=== PATIENT | female | born 1990 | race Caucasian/White ===

== ENCOUNTER → 2016-04-26 | Outpatient (CLI) | payer BC ==
--- NOTE | 2016-04-28 14:06 | US ---
EXAMINATION TYPE: US OB anatomy transabd DATE OF EXAM: 04/26/2016 2:03 PM COMPARISON: None available at this location. HISTORY: follow up to abnormal US at [facility], they could not document 3V code TECHNIQUE: Transabdominal (TA) exam performed 04/26/2016 present 04/28/2016 1 resolution of a [employer] l information transfer error. 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 12 oz. WEIGHT PERCENTAGE BASED ON ESTABLISHED DATE: 58 % HC/AC: 1.1 FL/AC: 22 HEART RATE: 134 bpm RHYTHM: Normal ANATOMY SEEN (within normal limits): * Lateral Vent (< 1 cm) 0.5 cm * Cisterna Magna (< 1.1 cm) 0.4 cm * Nuchal Fold (< 0.6 cm) 0.3 cm * Cerebellum (varies with age) 2.2 cm Choroid Plexus (bilateral) Midline Falx Cavus Septi Pellucidi Four Chamber Heart Outflow tracts: LVOT/RVOT Stomach Situs Nose / Lips Diaphragm Kidneys (bilateral) Bladder Cord Insert Three Vessel Cord Longitudinal Spine Transverse Spine Arms (bilateral) Legs (bilateral) TECHNOLOGIST IMPRESSION: Patient already had anatomy scan at [facility] but they are questioning 2V cord versus 3V = today there is a 20w3d fetus seen and appears wnl with a 3V cord note d *incidental of fundal uterine septation noted* IMPRESSION: 1. Single intrauterine gestation estimated at 20 weeks 3 days gestation based on the current ultrasou nd measurements. This would have a calculated EDC of 09/10/2016. Compare this with her physician sabas riky EDC of 09/12/2016. 2. Clear demonstration of a 3 vessel cord. 3. Cardiac activity measures 134 bpm.
== END | disposition home or self-care (01) ==
LOC: RADUSWWP 12:57
PROVIDERS: ATTEND Obstetrics & Gynecology
DX: Z36 Encounter for antenatal screening of mother (principal); Z3A.20 20 weeks gestation of pregnancy
CPT/HCPCS: 76811

== ENCOUNTER → 2016-06-03 | Outpatient (CLI) | payer BC ==
[2016-06-03 09:06] LABS: CH 32.5; CHCM 33.4; HCT 33.7 % (34.0-46.0); HDW 2.78; HGB 11.4 gm/dL (11.4-16.0); MCH 33.2 pg (25.0-35.0); MCHC 33.9 g/dL (31.0-37.0); MCV 97.8 fL (80.0-100.0); Mean Platelet Volume 6.5; RBC 3.44 m/uL (3.80-5.40); RDW 13.6 % (11.5-15.5); WBC 9.8 k/uL (3.8-10.6)
== END | disposition home or self-care (01) ==
LOC: LABWHC1 08:53
PROVIDERS: ATTEND Obstetrics & Gynecology
DX: Z34.82 Encounter for supervision of other normal pregnancy, second trimester (principal)
CPT/HCPCS: 36415; 82950; 85027

== ENCOUNTER → 2016-06-08 | Outpatient (CLI) | payer BC ==
[2016-06-08 12:02] LABS: Glucose 3 Hour, Gest 60 mg/dL
== END | disposition home or self-care (01) ==
LOC: LABWHC1 07:43
PROVIDERS: ATTEND Obstetrics & Gynecology
DX: O99.810 Abnormal glucose complicating pregnancy (principal); Z3A.00 Weeks of gestation of pregnancy not specified
CPT/HCPCS: 36415; 82951; 82952

== ENCOUNTER → 2016-06-22 | Outpatient (CLI) | payer BC ==
--- NOTE | 2016-06-22 14:36 | US ---
EXAMINATION TYPE: US OB anatomy transabd DATE OF EXAM: 06/22/2016 1:46 PM COMPARISON: NONE HISTORY: 25-year-old female [id number] Large for dates. Patient has a known uterine septation from prio r . TECHNIQUE: Transabdominal scanning FINDINGS: EXAM MEASUREMENTS: GESTATIONAL AGE / DATING Physician Established: (28 weeks/2 days) EDC: 09/12/2016 Dates by LMP: (28 weeks/2 days) EDC: 09/12/2016 Dates by First Scan: (28 weeks/4 days) EDC: 09/10/2016 Dates by Current Scan for: (28 weeks/6 days) EDC: 09/08/2016 SURVEY IUP: Single PLACENTA: Anterior. Approximately half of the placenta extends onto the left side of the septum. PREVIA: No previa ANA LILIA: 16.8 cm Normal CERVICAL LENGTH (transabdominal: norm > 3.0cm): 4.1 cm BIOMETRY PRESENTATION: Breech BPD: 7.5 cm 30 weeks / 2 days HC: 26.6 cm 29 weeks / 0 days AC: 24.7 cm 28 weeks / 6 days FL: 5.6 cm 29 weeks / 2 days ESTIMATED WEIGHT IN GRAMS: 1336 grams ESTIMATED WEIGHT IN LBS/OZS: 2 lbs. 15 oz. WEIGHT PERCENTAGE BASED ON ESTABLISHED DATE: 69 % HC/AC: 1.1 normal FL/AC: 22.5, normal HEART RATE: 132 bpm ANATOMY SEEN (within normal limits): Lateral Vent (< 1 cm) 0.5 cm Cisterna Magna (< 1.1 cm) 0.7 cm Cerebellum (varies with age) 3.2 cm Midline Falx Cavus Septi Pellucidi Four Chamber Heart Stomach Situs Diaphragm Kidneys (bilateral) Longitudinal Spine Transverse Spine Arms (bilateral) Legs (bilateral) ANATOMY NOT SEEN OR SUBOPTIMALLY VISUALIZED: Choroid Plexus (bilateral) Outflow tracts: LVOT/RVOT Nose / Lips Bladder Cord Insert Three Vessel Cord PUBLIC TRANSIT BUS DRIVER NOTES: Anatomy somewhat limited due to advanced age and position. Patient has known history of septate uterus discovered during prior . On today's exam the baby's head is posi tioned at the right cornua while the the body is more towards the left. Growth according to raciel es. IMPRESSION: 1. Single live intrauterine with estimated gestational age of 28 weeks 2 days by LMP. Curre nt ultrasound biometry is concordant (28 weeks 6 days) placing the child at the 69th percentile for w eight. There has been appropriate interval growth from 04/26/2016. 2. Septate uterus. The baby is now breech position with the head extending across the septum into the right cornua. Most of the body remains on the left. 3. Of note, a portion of the placenta has implanted onto the left aspect of the septum.
== END | disposition home or self-care (01) ==
LOC: RADUSWWP 13:01
PROVIDERS: ATTEND Obstetrics & Gynecology
DX: O32.1XX0 Maternal care for breech presentation, not applicable or unspecified (principal); O34.03 Maternal care for unspecified congenital malformation of uterus, third trimester; Q51.2 Other doubling of uterus; Z3A.28 28 weeks gestation of pregnancy
CPT/HCPCS: 76811

== ENCOUNTER 2016-09-05 05:49 | Inpatient (IN) | payer BC ==
[2016-08-31 12:24] VITALS: BMI 30.7
--- NOTE | 2016-09-04 11:00 | P.HPOB ---
History of Present Illness H&P Date: 09/04/16 Chief Complaint: Patient is presenting for repeat C/S and tubal ligation. This patient is a pleasant 26 yr female EDC 09/12/2016 estimated gestational age 39 0/7 weeks who presents for elective repeat C/S and also requesting permanent sterilization. has be complicated by a known uterine septum. She has been followed with growth ultrasounds and NSTs. She also was noted to have mild polyhydraminos. Review of Systems Constitutional: Denies chills, Denies fever Ears, nose, mouth and throat: Denies headache, Denies sore throat Cardiovascular: Denies chest pain, Denies shortness of breath Respiratory: Denies cough Gastrointestinal: Reports heartburn Genitourinary: Reports Menstruation: Reports amenorrhea Musculoskeletal: Denies myalgias Integumentary: Denies pruritus, Denies rash Neurological: Denies numbness, Denies weakness Psychiatric: Denies anxiety, Denies depression Past Medical History Additional Past Medical History / Comment(s): Uterine septum. History of Any Multi-Drug Resistant Organisms: None Reported Past Surgical History: Section Past Anesthesia/Blood Transfusion Reactions: No Reported Reaction Past Psychological History: No Psychological Hx Reported Smoking Status: Never smoker Past Alcohol Use History: None Reported Past Drug Use History: None Reported - Past Family History Mother Family Medical History: Diabetes Mellitus Medications and Allergies Home Medications Medication Instructions Recorded Confirmed Type Vitamin 1 tab PO DAILY 08/26/13 08/31/16 History L.acidoph,Paracasei, B.lactis 1 each PO 08/31/16 08/31/16 History [Probiotic] Allergies Allergy/AdvReac Type Severity Reaction Status Date / Time No Known Allergies Allergy Verified 08/31/16 12:18 Exam - OBG Physical Exam Abdomen: bowel sounds normal, no diffuse tenderness, no bruit present, no guarding noted, no hepatomegaly, no splenomegaly, no mass Vulva: both: normal Vagina: normal moisture, no discharge Cervix: no lesion (Cervix in the office was closed), no discharge Uterus: enlarged (Fundal height was 41 cm) Results Labs: B positive, Rubella Immune, RPR-HepB neg, Glucola was abnormal with a normal 3hr GTT, GBS negative. Assessment and Plan (1) Septate uterus complicating Narrative/Plan: This is a pleasant 26 yr female 39 weeks gestation with known uterine septum, previous section who desires repeat C/S and also requesting permanent sterilization. Patient understands that a tubal ligation is considered permanent, also does have a failure rate of ~ procedures done. She understands that surgery itself has risks: infection, bleeding, possible injury to bowel/bladder/vessels and other organs. She understands the risk of PE and DVT. All of her questions have been answered and a written consent obtained. Status: Chronic (2) Previous delivery affecting Status: Acute (3) Family planning Status: Acute
[2016-09-05] MEDS ORDERED: CITRIC ACID-SODIUM CITRATE 15 ML CUP PO ONE (06:02)
[2016-09-05] MEDS ORDERED: LACTATED RINGERS 1,000 ML IV ONE (06:02)
[2016-09-05] MEDS ORDERED: LACTATED RINGERS 1,000 ML IV SCH (06:02)
[2016-09-05 06:10] LABS: Basophils % (A) 0 %; CH 32.5; CHCM 34.2; Eosinophils # (A) 0.2 k/uL (0-0.7); Eosinophils % (A) 2 %; HCT 34.3 % (34.0-46.0); HDW 2.58; HGB 12.3 gm/dL (11.4-16.0); Luc # (Auto) 0.27; Luc % (Auto) 3; Lymphocytes # (A) 1.9 k/uL (1.0-4.8); Lymphocytes % (A) 23 %; MCH 34.1 pg (25.0-35.0); MCHC 35.7 g/dL (31.0-37.0); MCV 95.6 fL (80.0-100.0); Mean Platelet Volume 7.5; Monocytes # (A) 0.3 k/uL (0-1.0); Monocytes % (A) 4 %; Neutrophils # (A) 5.6 k/uL (1.3-7.7); Neutrophils % (A) 68 %; RBC 3.59 m/uL (3.80-5.40); RDW 14.8 % (11.5-15.5); WBC 8.2 k/uL (3.8-10.6); WBC (Perox) 8.85
[2016-09-05] MEDS ORDERED: ceFAZolin 2 GM in SODIUM CHLORIDE 0.9% 100 ML IVPB ONE (07:17)
[2016-09-05] MEDS ORDERED: ONDANSETRON 4 MG/2 ML VIAL ONE (07:50)
[2016-09-05] MEDS ORDERED: MORPHINE SULFATE (PF) 0.3 MG/0.3 ML SYR ONE (07:50)
[2016-09-05] MEDS ORDERED: ePHEDrine 50 MG/ML 1 ML AMP ONE (07:50)
[2016-09-05] MEDS ORDERED: NALBUPHINE 10 MG/ML AMPUL ONE (07:50)
[2016-09-05] MEDS ORDERED: OXYTOCIN 10 UNIT/ML 1 ML VIAL ONE (07:50)
[2016-09-05] MEDS ORDERED: diphenhydrAMINE 50 MG/ML 1 ML VIAL IVP PRN ×2 (08:18→08:38)
[2016-09-05] MEDS ORDERED: MORPHINE SULFATE 4 MG/ML SYRINGE IVP PRN (08:18)
[2016-09-05] MEDS ORDERED: NALOXONE 0.4 MG/ML 1 ML VIAL IV PRN ×2 (08:18→08:38)
[2016-09-05] MEDS ORDERED: ONDANSETRON 4 MG/2 ML VIAL IVP PRN ×2 (08:18→08:38)
[2016-09-05] MEDS ORDERED: Acetaminophen-Codeine 300-30mg TAB PO PRN (08:38)
[2016-09-05] MEDS ORDERED: SIMETHICONE 80 MG CHEWABLE PO PRN (08:38)
[2016-09-05] MEDS ORDERED: METOCLOPRAMIDE 5 MG/ML 2 ML VIAL IVP PRN (08:38)
[2016-09-05] MEDS ORDERED: OXYTOCIN 20 UNITS/1000 ML NS 1,000 ML IV SCH (08:38)
[2016-09-05] MEDS ORDERED: ACETAMINOPHEN TAB 325 MG TAB PO PRN (08:38)
[2016-09-05] MEDS ORDERED: diphenhydrAMINE 25 MG CAP PO PRN (08:38)
[2016-09-05] MEDS ORDERED: LANOLIN CREAM 5 GM TUBE TOPICAL PRN (08:38)
[2016-09-05] MEDS ORDERED: ZOLPIDEM 5 MG TAB PO PRN (08:38)
--- NOTE | 2016-09-05 08:44 | P.OP ---
Date of Procedure: 09/05/16 Preoperative Diagnosis: #1: 39-0/7 weeks . #2: Previous section desires repeat. #3: Multi parity desires permanent sterilization. #4: Known uterine septum. Postoperative Diagnosis: Same Procedure(s) Performed: #1: Repeat low transverse section. #2: Bilateral partial salpingectomy Implants: Anesthesia: spinal Surgeon: Dane Ramos Executive Administrative Asst #1: Tammie Silva Estimated Blood Loss (ml): 800 Urine output (ml): 800 Pathology: other (Placenta and bilateral fallopian tube segments) Condition: stable Disposition: floor Indications for Procedure: Please see dictated H&P for intimate details of this patient's admission. Repeat summary this is a pleasant 26-year-old 2 para 1 female 39 weeks gestation who was admitted to labor and delivery for elective repeat section and tubal ligation. Patient does understand that a tubal ligation is permanent, however there is a failure rate of approximately 20-25 per thousand procedures done. She understands surgery itself and apparently has risks including risks of infection, bleeding, possible injury to bowel, bladder, vessels, and/or other organs. She understands the risk of DVT and pulmonary embolism. All the patient's questions are answered written consent is obtained. Operative Findings: This was a vigorous viable female Apgars 9 and 9 delivery time is 0810 hours. Infant has spontaneous respirations and good cry. Patient had a large midline uterine septum. Description of Procedure: This patient has a Viramontes catheter placed to straight drain. She is substrate taken to the operating room where she sat up and spinal anesthetic is administered without incident. With an adequate level of anesthesia she has abdominal prep and drape. Scalpels then taken in the previous Pfannenstiel incision is incised. A second scalpel is taken down to the fascia and the fascia scored with the scalpel. The fascia is dissected bilaterally using the Luna scissors. The fascia is then dissected off the rectus muscles inferiorly and superiorly. Peritoneum was identified and entered sharply. Peritoneal incision extended superior and inferior without difficulty. Bladder blade is then placed. Bladder peritoneum was taken sharply off the lower uterine segment without difficulty. A scalpel is then taken and a low transverse uterine incision is made. Using a hemostat I into the uterine cavity bluntly. This incision is i extended bluntly. There is loss of clear fluid. 's head is then guided gently through the incision with fundal pressure. Mouth and nares are bulb suctioned. There is no evidence of a nuchal cord. We then have deliver the anterior and posterior shoulder and rest this infant's body. This is a vigorous viable female infant Apgars are 9 and 9 delivery time was 0810 hours. After delivery of the infant the umbilical cord is doubly clamped and cut and appears to be trivascular. The placenta is then manually extracted intact. I paid careful attention to the other uterine horn and remove the membranes from there as well. Complete removal of any products is noted. Uterine incision is then demarcated with Nettles clamps. Uterine incision closed using 0 Vicryl running locked fashion 2 layers and excellent hemostasis is noted. The bladder peritoneum was then reapproximated using 3-0 Vicryl. At this time I turned my attention to the left fallopian tube and approximately 4 cm from its cornual insertion I make a small window through the mesial salpinx using Bovie cautery. Using a 2-0 silk, I doubly ligate a knuckle the tube. Approximately 2 cm segment of tube was then excised and handed off to pathology. Cauterization is done of the tubal ends. Excellent hemostasis is noted. Similar technique is done on the right side with similar results. With this done excess fluid is removed from the abdomen and pelvis. All appears hemostatic. Uterus placed back into the abdomen. I do a final inspection of the fallopian tubes and a. Hemostatic. The parietal peritoneum was then closed using 0 Vicryl running fashion. Rectus muscle reapproximate 0 Vicryl interrupted fashion. Fascia is then closed using 0 PDS in a running fashion. Fascial incision is intact and hemostatic. Subcutaneous tissues and closed using a 3-0 Vicryl. Skin is and closed using lena. Sterile dressing is then applied and patient is taken to the recovery room in satisfactory condition. All counts are correct 3. There are no complications.
[2016-09-05] MEDS: SENNOSIDES-DOCUSATE SODIUM 1 EACH TAB PO SCH ×2 (09:56→22:35)
[2016-09-05] MEDS: LACTATED RINGERS 1,000 ML IV SCH ×2 (12:34→17:14)
[2016-09-05] MEDS: KETOROLAC 30 MG/ML 1 ML VIAL IVP PRN (22:36)
--- NOTE | 2016-09-06 06:03 | P.PNOBGPC ---
Subjective - Subjective Patient reports: Reports appetite normal, Reports voiding normally, Reports pain well controlled, Reports ambulating normally : doing well Objective - Vital Signs Latest vital signs: Vital Signs Temp Pulse Pulse Resp BP Pulse Ox 09/06/16 04:00 98.3 F 87 16 99/58 97 09/06/16 00:00 99.0 F 85 16 111/68 97 09/05/16 20:00 98.6 F 89 16 137/75 98 09/05/16 15:17 98.2 F 85 16 125/77 09/05/16 10:39 76 16 129/75 09/05/16 10:08 81 16 133/78 09/05/16 09:39 97.5 F L 76 16 130/86 09/05/16 09:23 89 16 134/78 09/05/16 09:18 80 16 134/78 100 09/05/16 09:09 87 16 126/75 09/05/16 08:54 97.5 F L 81 16 121/73 09/05/16 08:50 78 16 115/64 98 09/05/16 08:39 82 16 115/64 09/05/16 06:05 96.9 F L 91 18 138/82 98 Intake and Output 09/05/16 09/05/16 09/06/16 14:59 22:59 06:59 Output Total 1350 2150 Balance -1350 -2150 Output: Urine 550 2150 Uretheral (Viramontes) 650 Estimated Blood Loss 800 Other: Voiding Method Indwelling Catheter # Voids 1 1 - Exam Lungs: bilateral: normal Chest: Normal S1, Normal S2 Extremities: Present: normal Abdomen: Present: normal appearance, soft. Absent: distention, tenderness Incision: Present: normal, dry, intact Uterus: Present: normal, firm - Labs Labs: Abnormal Lab Results - Last 24 Hours (Table) 09/05/16 Range/Units 06:00 RBC 3.59 L (3.80-5.40) m/uL Assessment and Plan (1) Septate uterus complicating Narrative/Plan: Postoperative day #1. Patient is resting without complaints. Vital signs are stable she's afebrile. Patient's urinating and ambulating without difficulty. Plan today is to check a CBC, allow the patient to shower, and encourage more ambulation. Probable discharge home tomorrow. Current Visit: No Status: Chronic Priority: High Code(s): O34.599 - MATERNAL CARE FOR OTH ABNLT OF GRAVID UTERUS, UNSP TRIMESTER SNOMED Code(s): 21974619 (2) Previous delivery affecting Current Visit: Yes Status: Acute Code(s): O34.219 - MATERNAL CARE FOR UNSP TYPE SCAR FROM PREVIOUS DEL SNOMED Code(s): 367156302 (3) Family planning Current Visit: Yes Status: Acute Code(s): Z30.09 - ENCOUNTER FOR OTH GENERAL CNSL AND ADVICE ON CONTRACEPTION SNOMED Code(s): 65988846
[2016-09-06] MEDS: SENNOSIDES-DOCUSATE SODIUM 1 EACH TAB PO SCH ×2 (08:28→20:14)
[2016-09-06] MEDS: KETOROLAC 30 MG/ML 1 ML VIAL IVP PRN (08:29)
[2016-09-06 08:33] LABS: Basophils % (A) 0 %; CH 32.8; CHCM 33.8; Eosinophils # (A) 0.1 k/uL (0-0.7); Eosinophils % (A) 1 %; HCT 30.6 % (34.0-46.0); HDW 2.38; HGB 10.1 gm/dL (11.4-16.0); Luc # (Auto) 0.14; Luc % (Auto) 1; Lymphocytes # (A) 1.3 k/uL (1.0-4.8); Lymphocytes % (A) 12 %; MCH 32.3 pg (25.0-35.0); MCHC 33.1 g/dL (31.0-37.0); MCV 97.6 fL (80.0-100.0); Mean Platelet Volume 7.6; Monocytes # (A) 0.3 k/uL (0-1.0); Monocytes % (A) 3 %; Neutrophils # (A) 9.2 k/uL (1.3-7.7); Neutrophils % (A) 84 %; RBC 3.13 m/uL (3.80-5.40); WBC 11.1 k/uL (3.8-10.6); WBC (Perox) 11.57
[2016-09-06] MEDS: Acetaminophen-Codeine 300-30mg TAB PO PRN ×2 (11:46→20:14)
--- NOTE | 2016-09-06 13:24 | P.PN ---
Progress Note - Text Date:09/06 Time:702 Patient is status post . Patient seen this morning with VAS score of 2.no c/o of pruritus, no c/o nausea/vomiting, comfortable and doing well.
[2016-09-06] MEDS: IBUPROFEN 600 MG TAB PO PRN ×2 (16:02→23:22)
--- NOTE | 2016-09-07 06:39 | P.PNOBGPC ---
Subjective - Subjective Patient reports: Reports appetite normal, Reports voiding normally, Reports pain well controlled, Reports ambulating normally : doing well Objective - Vital Signs Latest vital signs: Vital Signs Temp Pulse Resp BP Pulse Ox 09/07/16 00:00 97.9 F 89 16 98/67 97 09/06/16 16:00 98.3 F 89 20 117/68 97 09/06/16 08:00 98.6 F 92 20 113/63 97 Intake and Output 09/06/16 09/06/16 09/07/16 14:59 22:59 06:59 Other: # Voids 1 - Exam Lungs: bilateral: normal Chest: Normal S1, Normal S2 Extremities: Present: normal Abdomen: Present: normal appearance, soft. Absent: distention, tenderness Incision: Present: normal, dry, intact Uterus: Present: normal, firm - Labs Labs: Abnormal Lab Results - Last 24 Hours (Table) 09/06/16 Range/Units 08:05 WBC 11.1 H (3.8-10.6) k/uL RBC 3.13 L (3.80-5.40) m/uL Hgb 10.1 L (11.4-16.0) gm/dL Hct 30.6 L (34.0-46.0) % Neutrophils # 9.2 H (1.3-7.7) k/uL Assessment and Plan (1) Septate uterus complicating Narrative/Plan: This is postoperative day #2. Patient is resting without complaints wishes to go home. Patient desires to go home. Vital signs are stable and she is afebrile. Uterus is firm nontender and she is normal lochia. Incision is intact and dry. My impression this is a normal postoperative course. Plan is to continue routine care and discharge home today. Current Visit: No Status: Chronic Priority: High Code(s): O34.599 - MATERNAL CARE FOR OTH ABNLT OF GRAVID UTERUS, UNSP TRIMESTER SNOMED Code(s): 61345988 (2) Previous delivery affecting Current Visit: Yes Status: Acute Code(s): O34.219 - MATERNAL CARE FOR UNSP TYPE SCAR FROM PREVIOUS DEL SNOMED Code(s): 081751435 (3) Family planning Current Visit: Yes Status: Acute Code(s): Z30.09 - ENCOUNTER FOR OTH GENERAL CNSL AND ADVICE ON CONTRACEPTION SNOMED Code(s): 88677158
--- NOTE | 2016-09-07 06:50 | P.DS ---
Providers Date of admission: 09/05/16 05:49 Expected date of discharge: 09/07/16 Attending physician: Dane Ramos Primary care physician: Ron Song Sagar - Discharge Diagnosis(es) (1) Septate uterus complicating Current Visit: No Status: Chronic Priority: High (2) Previous delivery affecting Current Visit: Yes Status: Acute (3) Family planning Current Visit: Yes Status: Acute Hospital Course: Please see dictated H&P for intimate details of this patient's admission. Brief summary this pleasant 26-year-old 2 para 1 female 39 weeks gestation admitted to labor and delivery for elective repeat section and tubal ligation. Patient undergoes above-named surgeries. Please see dictated operative note. Postoperatively patient does well and on postoperative 2 felt be stable for discharge home follow up with me in 1 week. Procedures: repeat low transverse section and bilateral partial salpingectomy. Patient Condition at Discharge: Good Plan - Discharge Summary New Discharge Prescriptions: New Acetaminophen-Codeine 300-30mg [Tylenol w/codeine #3] 1 - 2 each PO Q4HR PRN #2 tab PRN Reason: Mild Pain Ibuprofen [Motrin] 600 mg PO Q6HR PRN #40 tab PRN Reason: Mild Pain Or Fever >= 100.5 No Action Vitamin 1 tab PO DAILY L.acidoph,Paracasei, B.lactis [Probiotic] 1 cap PO DAILY Discharge Medication List Vitamin 1 tab PO DAILY 08/26/13 [History] L.acidoph,Paracasei, B.lactis [Probiotic] 1 cap PO DAILY 08/31/16 [History] Acetaminophen-Codeine 300-30mg [Tylenol w/codeine #3] 1 - 2 each PO Q4HR PRN #2 tab 09/07/16 [Rx] Ibuprofen [Motrin] 600 mg PO Q6HR PRN #40 tab 09/07/16 [Rx] Follow up Appointment(s)/Referral(s): Dane Ramos MD [STAFF PHYSICIAN] - 09/16/16 8:30 am (Patient also has a visit on October 11 at 10:15 AM.) Patient Instructions/Handouts: (DC) Activity/Diet/Wound Care/Special Instructions: No heavy lifting or strenuous activity for 6 weeks. Please call if any fever, chills, excessive vaginal bleeding, and/or abdominal pain. Discharge Disposition: HOME SELF-CARE
[2016-09-07] MEDS: IBUPROFEN 600 MG TAB PO PRN (08:47)
[2016-09-07] MEDS: SENNOSIDES-DOCUSATE SODIUM 1 EACH TAB PO SCH (08:47)
[2016-09-07 09:28] VITALS: BP 119/70; PULSE 99; RESP 18; TEMP 97.6
== END 2016-09-07 11:20 | disposition home or self-care (01) | DRG 766 ==
LOC: 4FBP 05:49
PROVIDERS: ADMIT Obstetrics & Gynecology; ATTEND Obstetrics & Gynecology
PROC: 10D00Z1 Extraction of Products of Conception, Low, Open Approach (ICD-10-PCS; principal; 2016-09-05 07:50)
PROC: 0UB70ZZ Excision of Bilateral Fallopian Tubes, Open Approach (ICD-10-PCS; principal; 2016-09-05 07:50)
DX: O34.211 Maternal care for low transverse scar from previous cesarean delivery (principal); Q51.2 Other doubling of uterus; Z37.0 Single live birth; Z30.2 Encounter for sterilization; Z3A.39 39 weeks gestation of pregnancy
CPT/HCPCS: 85025; 86850; 86900; 86901; 88302; 88307; 94760